=== PATIENT | female | born 1960 | race African-American/Black ===

== ENCOUNTER → 2017-08-21 | Outpatient (CLI) | payer BC ==
[~2017-08-21] MED LIST: DARVOCET N 1001 TAB PO; LISINOPRIL20 MG PO; NORFLEX100 MG PO; SYNTHROID0.175 MG PO; VITAMIN D50000 IU
== END | disposition home or self-care (01) ==
LOC: MAMMO 08-20 09:30
DX: Z12.31 Encounter for screening mammogram for malignant neoplasm of breast (principal)

== ENCOUNTER → 2019-09-16 | Outpatient (CLI) | payer BC | END | disposition home or self-care (01) | LOC: MAMMO 07:30 | DX: N63.22 Unspecified lump in the left breast, upper inner quadrant (principal) ==

== ENCOUNTER → 2019-11-01 | Outpatient (CLI) | payer BC | END | disposition home or self-care (01) | LOC: US 15:30 | DX: M79.662 Pain in left lower leg (principal) ==

== ENCOUNTER 2023-06-04 16:04 | Emergency (ER) | payer BC | END 2023-06-04 16:20 | disposition left against medical advice (07) | LOC: ED 16:04 | DX: Z00.00 Encounter for general adult medical examination without abnormal findings (principal); Z88.0 Allergy status to penicillin; Z53.21 Procedure and treatment not carried out due to patient leaving prior to being seen by health care provider ==

== ENCOUNTER → 2023-06-06 | Outpatient (CLI) | payer BC | END | disposition home or self-care (01) | LOC: US 01:13 | PROVIDERS: ATTEND Internal Medicine Nephrology | DX: K80.20 Calculus of gallbladder without cholecystitis without obstruction (principal); R10.33 Periumbilical pain; I70.0 Atherosclerosis of aorta ==

== ENCOUNTER → 2023-06-16 | Outpatient (CLI) | payer BC | END | disposition home or self-care (01) | LOC: MAMMO 04-24 08:30 → US 06-06 08:30 → MAMMO 08:30 | PROVIDERS: ATTEND Internal Medicine Nephrology | DX: Z12.31 Encounter for screening mammogram for malignant neoplasm of breast (principal) ==

== ENCOUNTER 2023-06-23 18:51 | Emergency (ER) | payer BC ==
[~2023-06-23] VITALS: Ht 190.5 cm; Wt 90.7 kg
[2023-06-23 18:58] VITALS: BP 113/55
== END 2023-06-23 19:26 | disposition left against medical advice (07) ==
LOC: ED 18:51
DX: S69.92XA Unspecified injury of left wrist, hand and finger(s), initial encounter (principal); Z88.0 Allergy status to penicillin; Z53.21 Procedure and treatment not carried out due to patient leaving prior to being seen by health care provider; X58.XXXA Exposure to other specified factors, initial encounter; Y93.89 Activity, other specified; Y92.89 Other specified places as the place of occurrence of the external cause; Y99.8 Other external cause status

== ENCOUNTER → 2024-02-27 | Outpatient (CLI) | payer BC | END | disposition home or self-care (01) | LOC: US 14:00 | PROVIDERS: ATTEND Internal Medicine Nephrology | DX: M79.662 Pain in left lower leg (principal); M54.40 Lumbago with sciatica, unspecified side ==